=== PATIENT | male | born 1955 | race Caucasian/White ===

== ENCOUNTER 2017-05-29 11:21 | Observation (INO) | payer OTHER ==
--- NOTE | 2017-05-29 12:35 | RAD REPORT ---
EXAM DESCRIPTION: Ashley Single View05/29/2017 12:19 pm CLINICAL HISTORY: Chest pain COMPARISON: March 2016 FINDINGS: The lungs appear clear of acute infiltrate. The heart is normal size IMPRESSION: No acute abnormalities displayed
[2017-05-29 13:41] LABS: Absolute Lymphocytes (CBC) 1.7 K/uL (0.7-4.9); Absolute Monocytes 0.6 K/uL (0.1-1.3); Absolute Neutrophil 3.7 K/uL (1.8-8.0); Basophils % 1.3 % (0-1.3); Eosinophils % 2.7 % (0-4.4); Hematocrit 50.2 % (39.6-49.0); Lymphocytes % 26.8 % (15.3-44.8); MCH 28.6 pg (27.0-35.0); MPV 10.3 fL (7.6-11.3); Monocytes % 9.6 % (3.3-12.3); RBC Red Blood Cell Count 5.78 M/uL (4.33-5.43)
[2017-05-29 14:06] LABS: Albumin 4.3 g/dL (3.2-5.5); Bilirubin Direct 0.1 mg/dL (0-0.2); Bilirubin Total 0.7 mg/dL (0.3-1.2); Protein, Total 6.9 g/dL (6.0-8.3)
[2017-05-29 14:13] LABS: Protime INR 1.1
--- NOTE | 2017-05-29 14:25 | ER ---
Nurse's Notes [facility] Name: Joshua Watts Jr Age: 62 yrs Sex: Male : 1955 Arrival Date: 05/29/2017 Time: 11:24 Bed 17 Private MD: Miguel Gorman B Diagnosis: Chest pain, unspecified Presentation: 05/29 11:25 Presenting complaint: Patient states: Sternal chest pain that started while patient was aj exercising. Reports pain subsided shortly after it began and then returned last night. Took Aspirin 325 mg this AM. Transition of care: patient was not received from another setting of care. Onset of symptoms was May 28, 2017. Initial Sepsis Screen: Does the patient meet any 2 criteria? No. Patient's initial sepsis screen is negative. Does the patient have a suspected source of infection? No. Patient's initial sepsis screen is negative. Care prior to arrival: None. 11:25 Method Of Arrival: Ambulatory 11:25 Acuity: SEAN 3 aj Triage Assessment: 11:28 General: Appears in no apparent distress. comfortable, Behavior is calm, cooperative, aj appropriate for age. Pain: Complains of pain in chest Pain currently is 2 out of 10 on a pain scale. Neuro: Level of Consciousness is awake, alert, obeys commands, Oriented to person, place, time, situation, Appropriate for age. Cardiovascular: Reports chest pain, Capillary refill < 3 seconds in bilateral fingers Patient's skin is warm and dry. Respiratory: Airway is patent Respiratory effort is even, unlabored, Respiratory pattern is regular, symmetrical. Derm: Skin is intact, is healthy with good turgor, Skin is pink, warm \T\ dry. normal. Historical: - Allergies: 11:28 Darvon; aj 11:28 Darvocet-N 100; aj - Home Meds: 11:28 embrel [Active]; Benicar HCT oral oral [Active]; aj - PMHx: 11:28 Hypertension; Psoriatic arthritis; aj - PSHx: 11:28 Appendectomy; aj - Immunization history:: Adult Immunizations up to date. - Social history:: Smoking status: Patient/guardian denies using tobacco. Screenin:31 Abuse screen: Denies threats or abuse. Nutritional screening: No deficits noted. ae1 Tuberculosis screening: No symptoms or risk factors identified. Fall Risk None identified. Assessment: 11:15 General: Appears in no apparent distress. comfortable, Behavior is calm, cooperative. ae1 Pain: Denies pain. Neuro: Level of Consciousness is awake, alert, obeys commands, Oriented to person, place, time, situation. Cardiovascular: Heart tones S1 S2 present Patient's skin is warm and dry. Respiratory: Airway is patent Respiratory effort is even, unlabored, relaxed, Respiratory pattern is regular, symmetrical. GI: No signs and/or symptoms were reported involving the gastrointestinal system. Patient currently denies nausea. : No signs and/or symptoms were reported regarding the genitourinary system. Urine is clear. EENT: No signs and/or symptoms were reported regarding the EENT system. Derm: Skin is normal. Musculoskeletal: No signs and/or symptoms reported regarding the musculoskeletal system. 15:13 Reassessment: Per Tomás Villaseñor ok to order a heart healthy diet tray for patient. Dietary ae1 notified via telephone that order will be coming through [facility]. 15:20 Reassessment: at bedside discussing plan of care. ae1 15:31 Pain: Pain does not radiate. Pain began suddenly, 4 hours ago. ae1 15:32 Reassessment: Report called to Katie receiving nurse. Dietary notified that patient ae1 will be transferred to floor bed and tray should be sent to 421. Registration notified that report has been called. Vital Signs: 11:28 BP 120 / 68; Pulse 74; Resp 17; Temp 97.4; Pulse Ox 96% on R/A; Weight 154.22 kg; aj Height 6 ft. 2 in. (187.96 cm); Pain 2/10; 13:29 BP 118 / 63; Pulse 61; Resp 18; Pulse Ox 96% on R/A; ae1 15:20 BP 146 / 74; Pulse 63; Resp 18; Pulse Ox 95% on R/A; ae1 11:28 Body Mass Index 43.65 (154.22 kg, 187.96 cm) aj ED Course: 11:24 Patient arrived in ED. rg4 11:24 Miguel Groman MD is Private Physician. rg4 11:27 Triage completed. aj 11:28 Arm band placed on left wrist. Patient placed in an exam room. aj 11:30 Rogelio Orozco PA is PHCP. jr8 11:30 Dino Bills MD is Attending Physician. jr8 11:40 EKG done, by neurodiagnostic technologist. reviewed by Rogelio ROSARIO. at1 12:17 X-ray completed. Portable x-ray completed in exam room. Patient tolerated procedure ml well. 12:19 XRAY Chest (1 view) In Process Unspecified. EDMS 12:55 Matt Mendoza, RN is Primary Nurse. ae1 13:28 Inserted saline lock: 20 gauge in right antecubital area, using aseptic technique. ae1 ,using aseptic technique. blood sent to lab for recollection. Blood collected. Patient maintains SpO2 saturation greater than 95% on room air. 14:25 Dino England MD is Hospitalizing Provider. jr8 15:21 Placed in gown. Bed in low position. Call light in reach. Side rails up X2. Adult w/ ae1 patient. night monitor on. Pulse ox on. NIBP on. 16:06 No provider procedures requiring assistance completed. Patient admitted, IV remains in ae1 place. Administered Medications: No medications were administered Outcome: 14:25 Decision to Hospitalize by Provider. jr8 16:06 Admitted to Tele accompanied by tech, via wheelchair, room 421, with chart, Report ae1 called to SHASHI Wilson 16:06 Condition: stable 16:07 Patient left the ED. ae1 Signatures: Dispatcher [employer] EDMarah Dolan, RN RN Lynda Diego Josh, PA PA jr8 Marah fraser, canvas cutter machine EKG Tat1 Matt Mendoza, RN RN ae1 Verona Maldonado rg4 Corrections: (The following items were deleted from the chart) 15:34 15:32 Reassessment: Report called to Katie, receiving ae1 ae1 15:35 15:32 Reassessment: Report called to Katie receiving nurse. Dietary notified that ae1 patient will be transferred to floor bed and tray should be sent to 421. ae1
--- NOTE | 2017-05-29 14:26 | EDPHYS ---
Physician Documentation [facility] Name: Joshua Watts Jr Age: 62 yrs Sex: Male : 1955 Arrival Date: 05/29/2017 Time: 11:24 Bed 17 Private MD: Miguel Gorman B ED Physician Dino Bills HPI: 05/29 12:23 This 62 yrs old Male presents to ER via Ambulatory with complaints of Chest jr8 Pain. 12:23 The patient or guardian reports chest pain that is located primarily in the substernal jr8 area. Onset: acutely, yesterday. The pain does not radiate. Associated signs and symptoms: Pertinent positives: shortness of breath. The chest pain is described as a pressure, squeezing. Duration: The patient or guardian reports multiple episodes. Modifying factors: The symptoms are alleviated by ASA, rest, the symptoms are aggravated by exertion. Severity of pain: At its worst the pain was moderate in the emergency department the pain has resolved. The patient has not experienced similar symptoms in the past. The patient has not recently seen a physician. Patient stated that last week while working in yard had [place]. Stated that he was on exercise machine yesterday and about 19 min into workout started to have chest pressure substernally. Stopped and took aspirin and rested. Took about 30 min to resolve. Later in the night while at rest started to have that same pain. Came to ED today . Historical: - Allergies: 11:28 Darvon; aj 11:28 Darvocet-N 100; aj - Home Meds: 11:28 embrel [Active]; Benicar HCT oral oral [Active]; aj - PMHx: 11:28 Hypertension; Psoriatic arthritis; aj - PSHx: 11:28 Appendectomy; aj - Immunization history:: Adult Immunizations up to date. - Social history:: Smoking status: Patient/guardian denies using tobacco. ROS: 12:23 Eyes: Negative for injury, pain, redness, and discharge, ENT: Negative for injury, jr8 pain, and discharge, Neck: Negative for injury, pain, and swelling, Respiratory: Negative for shortness of breath, cough, wheezing, and pleuritic chest pain, Abdomen/GI: Negative for abdominal pain, nausea, vomiting, diarrhea, and constipation, Back: Negative for injury and pain, MS/Extremity: Negative for injury and deformity, Skin: Negative for injury, rash, and discoloration, Neuro: Negative for headache, weakness, numbness, tingling, and seizure. 12:23 Cardiovascular: Positive for chest pain, Negative for edema, orthopnea, palpitations, paroxysmal nocturnal dyspnea. Exam: 12:23 Eyes: Pupils equal round and reactive to light, extra-ocular motions intact. Lids and jr8 lashes normal. Conjunctiva and sclera are non-icteric and not injected. Cornea within normal limits. Periorbital areas with no swelling, redness, or edema. ENT: Nares patent. No nasal discharge, no septal abnormalities noted. Tympanic membranes are normal and external auditory canals are clear. Oropharynx with no redness, swelling, or masses, exudates, or evidence of obstruction, uvula midline. Mucous membranes moist. Neck: Trachea midline, no thyromegaly or masses palpated, and no cervical lymphadenopathy. Supple, full range of motion without nuchal rigidity, or vertebral point tenderness. No Meningismus. Chest/axilla: Normal chest wall appearance and motion. Nontender with no deformity. No lesions are appreciated. Cardiovascular: Regular rate and rhythm with a normal S1 and S2. No gallops, murmurs, or rubs. Normal PMI, no JVD. No pulse deficits. Respiratory: Lungs have equal breath sounds bilaterally, clear to auscultation and percussion. No rales, rhonchi or wheezes noted. No increased work of breathing, no retractions or nasal flaring. Abdomen/GI: Soft, non-tender, with normal bowel sounds. No distension or tympany. No guarding or rebound. No evidence of tenderness throughout. Back: No spinal tenderness. No costovertebral tenderness. Full range of motion. Skin: Warm, dry with normal turgor. Normal color with no rashes, no lesions, and no evidence of cellulitis. MS/ Extremity: Pulses equal, no cyanosis. Neurovascular intact. Full, normal range of motion. Neuro: Awake and alert, GCS 15, oriented to person, place, time, and situation. Cranial nerves II-XII grossly intact. Motor strength 5/5 in all extremities. Sensory grossly intact. Cerebellar exam normal. Normal gait. Vital Signs: 11:28 BP 120 / 68; Pulse 74; Resp 17; Temp 97.4; Pulse Ox 96% on R/A; Weight 154.22 kg; aj Height 6 ft. 2 in. (187.96 cm); Pain 2/10; 13:29 BP 118 / 63; Pulse 61; Resp 18; Pulse Ox 96% on R/A; ae1 15:20 BP 146 / 74; Pulse 63; Resp 18; Pulse Ox 95% on R/A; ae1 11:28 Body Mass Index 43.65 (154.22 kg, 187.96 cm) MDM: 11:30 Patient medically screened. 12:27 HEART Score: History: Moderately Suspicious (1), ECG: Normal (0), Age: > 45 and < 65 jr8 years (1), Risk Factors: > or = 3 Risk factors for atherosclerotic disease (2), [Hypercholesterolemia] [Hypertension] [+ Family HX] [Obesity] Troponin: < or = 1 x Normal Limit (0). The patient was not given aspirin in the Emergency Department. Patient reports taking aspirin within the past 24 hours. Data reviewed: vital signs, nurses notes, lab test result(s), EKG, radiologic studies, plain films. Data interpreted: Pulse oximetry: on room air is 96 %. Interpretation: normal. 14:24 Physician consultation: Dino England MD was called at 14:24, was contacted at 14:24, regarding admission, to the telemetry unit. consult, patient's condition, and will see patient. 05/29 11:48 Order name: Basic Metabolic Panel; Complete Time: 14:07 [facility] 05/29 11:48 Order name: BNP; Complete Time: 13:36 [facility] 05/29 11:48 Order name: CBC with Diff; Complete Time: 13:53 05/29 11:48 Order name: LFT's; Complete Time: 14:07 [facility] 05/29 11:48 Order name: Magnesium; Complete Time: 14:07 [facility] 05/29 11:48 Order name: PT-INR; Complete Time: 14:15 [facility] 05/29 11:30 Order name: EKG; Complete Time: 11:31 05/29 11:30 Order name: EKG - Nurse/Tech; Complete Time: 14:08 05/29 11:48 Order name: Ptt, Activated; Complete Time: 14:15 jr05/29 11:48 Order name: Troponin (emerg Dept Use Only); Complete Time: 14:07 05/29 11:48 Order name: XRAY Chest (1 view); Complete Time: 12:42 05/29 11:48 Order name: Cardiac monitoring; Complete Time: 13:34 05/29 14:01 Order name: Urine Dipstick--Ancillary (enter results); Complete Time: 14:40 mw2 05/29 15:16 Order name: Diet Heart Healthy; Complete Time: 15:17 ae1 05/29 11:48 Order name: IV Saline Lock; Complete Time: 13:34 05/29 11:48 Order name: Labs collected and sent; Complete Time: 13:34 [facility] 05/29 11:48 Order name: O2 Per Protocol; Complete Time: 13:34 05/29 11:48 Order name: O2 Sat Monitoring; Complete Time: 13:34 [facility] 05/29 11:48 Order name: Urine Dipstick-Ancillary (obtain specimen); Complete Time: 14:06 05/29 12:51 Order name: Labs - recollect needed; Complete Time: 13:34 mw2 Administered Medications: No medications were administered Disposition: 19:12 Co-signature as Attending Physician, Dino Bills MD I agree with the assessment and [facility] plan of care. Disposition: 05/29/17 14:25 Hospitalization ordered by Dino England for Observation. Preliminary diagnosis is Chest pain, unspecified. - Bed requested for Telemetry/MedSurg (observation). - Status is Observation. ae1 - Condition is Stable. - Problem is new. - Symptoms have improved. UTI on Admission? No Signatures: Dispatcher [employer] Marah Cartagena, RN Dino Young MD MD cha Roszak, Josh, PA PA jr8 Matt Mendoza RN RN ae1 Luca Perez mw2
[2017-05-29 14:27] LABS: Urine Blood NEGATIVE (NEG); Urine Glucose NEGATIVE (NEG); Urine Protein NEGATIVE (NEG); Urine pH 6.5 (5.0-7.0)
[2017-05-29] MEDS ORDERED: ACETAMINOPHEN 500 MG TAB PO PRN (16:05)
[2017-05-29] MEDS ORDERED: NITROGLYCERIN 0.4 MG/TAB SL PRN (16:05)
[2017-05-29] MEDS ORDERED: Morphine 2 MG/2 ML SYR IV PRN (16:05)
[2017-05-29] MEDS ORDERED: ALPRAZOLAM 0.25 MG TABLET PO PRN (16:05)
[2017-05-29 16:36] VITALS: BMI 43.6
--- NOTE | 2017-05-29 17:02 | EKG ---
Test Date: 2017-05-29 Test Time: 11:36:56 Bow String Maker: TOMMY MEASUREMENT RESULTS: Intervals: Rate: 63 NC: 150 QRSD: 102 QT: 402 QTc: 411 [place]: P: 12 NC: 150 QRS: -33 T: 23 INTERPRETIVE STATEMENTS: Normal sinus rhythm Left axis deviation Abnormal ECG Compared to ECG 03/28/2016 14:48:09 No significant changes Electronically Signed On 05-29-17 17:01:36 CDT by Arcenio Storm
[2017-05-29] MEDS: ENOXAPARIN 40 MG/0.4 ML SQ SCH (17:09)
[2017-05-29] MEDS ORDERED: ATORVASTATIN 40 MG TAB PO SCH (21:00)
[2017-05-29] MEDS: METOPROLOL TAR 25 MG TAB PO SCH (21:29)
--- NOTE | 2017-05-30 02:21 | HP ---
Date of Admission: 05/29/2017 Consultants: Dr. Mcnally with Cardiology. Primary Care Physician: Dr. Gorman. Chief Complaint: Chest pain. History Of Present Illness: The patient is a 62-year-old male with a past medical history of hyperte nsion, hyperlipidemia, gastroesophageal reflux disease, obstructive sleep apnea, and psoriatic arthri tis, who was in his usual state of health until the day prior to admission when the patient began an exercise regimen. The patient was biking and within 20 minutes had chest tightness and pain, which w as pressure type, radiating towards the back. The patient stopped exercising and took some aspirin a nd water and his symptoms dissipated in about 45 minutes. The patient had recurrence of this pain at night and had some worsening this morning. No associated nausea, vomiting, diaphoresis, or palpitat ions. The patient denies any cough, sputum production, fevers, or chills. The patient is a former E NT and suspected heart disease, therefore came into the ER for further evaluation. Upon arrival, his vital signs were stable. He was afebrile. His workup revealed negative troponin level. Chest x-ra y was normal and EKG did not show any acute changes. The patient was referred for admission. When s een in the ER, the patient was awake, alert, and oriented x3, in not any acute distress. He denied a ny chest pain at this time. Past Medical History: Hypertension, hyperlipidemia, gastroesophageal reflux disease, obstructive sle ep apnea, psoriatic arthritis, and obesity. Surgical History: Exploratory laparotomy for lysis of adhesions, ventral hernia repair, appendectomy , and pilonidal cyst. Allergies: TO DARVOCET, PROPOXYPHENE. Medications: As per medication reconciliation list reviewed. Social History: The patient denies any tobacco use. Does drink occasionally. No illicit drug use. The patient is , independent in his activities of daily living. Family History: Father had bypass surgery in the early 40s and of heart attack. Mother is in [employer] at age 88. Review of Systems: An 11-point system reviewed, negative except as per HPI. Physical Examination: Vital Signs: Temperature 97.4, heart rate 74, blood pressure 120/68, respirations 17, and O2 96% on room air. General: Awake, alert, and oriented x3, not in acute distress. Morbidly obese male. HEENT: Normocephalic, atraumatic. PERRLA. EOMI. Moist mucous membranes. Oropharynx is clear. No rmal dentition. Conjunctivae anicteric. Neck: Supple. No JVD. Trachea midline. CV: S1, S2. Regular rate and rhythm. Peripheral pulses present. No murmurs. Respiratory: Clear to auscultation bilaterally. No wheezing. No stridor. No use of accessory musc les. Gastrointestinal: Abdomen is soft, distended, and nontender. Bowel sounds are positive. No guardin g or rigidity. Extremities: No clubbing, cyanosis. No calf tenderness. The patient does have some trace edema on the lower extremities. Neuro: Cranial nerves 2 through 12 intact grossly. No focal neurological deficit. Speech is speech is normal. Strength is 5/5 in bilateral upper and lower extremities. Sensation intact to light inocencia ch. Skin: No rashes. Normal skin turgor. Psych: Mood is okay. Affect is full. Insight and judgment are good. Laboratory Data: Sodium 137, potassium 4, chloride 104, CO2 29, BUN 13, creatinine 1.09, glucose 100 , calcium 9.5, and magnesium 2. Troponin less than 0.03. INR 1.10. WBC 6.3, H and H 16.5 and 50.2, and platelets 165. UA negative. Chest x-ray shows no acute abnormalities, personally reviewed. Assessment: A 62-year-old male with; 1.Chest pain, rule out acute coronary syndrome. We will start him on chest pain guidelines. The pa woody is intolerant to statins. He has tried those before, develops myopathy. We will obtain serial cardiac enzymes and EKG. Dr. Mcnally with Cardiology has been consulted. The patient did have a co ronary angiogram in 2004 at [facility] and was told that he had normal coronary arteries. Nitro and morphine p.r.n. 2.Morbid obesity. 3.Essential hypertension. We will resume home medications. 4.Hyperlipidemia. We will check lipid panel. The patient is intolerant to statins. 5.Obstructive sleep apnea. The patient is instructed to bring in his CPAP with his old settings. 6.Psoriatic arthritis. We will hold Enbrel for now. 7.Gastroesophageal reflux disease without esophagitis. We will continue PPI. 8.Gastrointestinal and deep venous thrombosis prophylaxis with PPI and Lovenox. Plan: Admit the patient to med-surg, place as observation with remote cardiac telemetry. /RIO Voice ID: [id number]
[2017-05-30 05:28] LABS: Potassium 3.9 mEq/L (3.6-5.0)
[2017-05-30 05:44] LABS: Absolute Lymphocytes (CBC) 2.1 K/uL (0.7-4.9); Absolute Monocytes 0.8 K/uL (0.1-1.3); Absolute Neutrophil 4.1 K/uL (1.8-8.0); Basophils % 1.2 % (0-1.3); Eosinophils % 3.9 % (0-4.4); Lymphocytes % 28.6 % (15.3-44.8); MCH 28.6 pg (27.0-35.0); Monocytes % 11.2 % (3.3-12.3); RBC Red Blood Cell Count 5.75 M/uL (4.33-5.43)
[2017-05-30] MEDS ORDERED: LISINOPRIL 10 MG TAB PO SCH (09:00)
[2017-05-30] MEDS: ENOXAPARIN 40 MG/0.4 ML SQ SCH (09:00)
[2017-05-30] MEDS ORDERED: OLMESARTAN PO SCH (09:00)
[2017-05-30] MEDS: VALSARTAN 160 MG TAB PO SCH (09:00)
[2017-05-30] MEDS: METOPROLOL TAR 25 MG TAB PO SCH ×2 (09:00→22:34)
[2017-05-30] MEDS: hydroCHLOROthiazide 12.5 MG CAP PO SCH (09:00)
[2017-05-30] MEDS ORDERED: HYDROCHLOROTHIAZIDE PO SCH (09:00)
[2017-05-30] MEDS ORDERED: [UNRECOGNIZED DRUG - OTHER] PO SCH (09:00)
[2017-05-30] MEDS ORDERED: LIDOCAINE 1% 20 ML MDV ONE (09:52)
[2017-05-30] MEDS ORDERED: ATROPINE SULF 1 MG/10 ML SYR IV ONE (09:52)
[2017-05-30] MEDS ORDERED: NITROGLYCERIN/D5W 25 MG/250 ML BTL IV ONE (09:52)
[2017-05-30] MEDS ORDERED: NICARDIPINE HCL 25 MG/10 ML IV ONE (09:52)
[2017-05-30] MEDS ORDERED: NA CHLORIDE 0.9% 500 ML ONE (09:52)
[2017-05-30] MEDS ORDERED: HEPARIN 5000 UNIT/ML 1 ML VIAL ONE (09:52)
[2017-05-30] MEDS ORDERED: NA CHLORIDE 0.9% 0 ML ONE (09:53)
--- NOTE | 2017-05-30 11:12 | TREADMILL ---
70% H.R.: 112 85% H.R.: 136 90% H.R.: 144 100% H.R.: 160 DX: CHEST PAIN Date of Study: 05/30/2017 Ht: 6' 2 " Wt: 340 lb 0 oz Consulting Physician: CORTNEY MEDICATIONS: PROTONIX, TYLENOL, ASPIRIN, DIOVAN, HCT3, LOPRESOR, LOVENOX, MORPHINE, NTG, XANAX HISTORY: 62 YEAR OLD MALE WITH COMPLAINTS OF CHEST PAIN. PHYSICIAL EXAMINATION: RESTING B.P.: 115/78 RESTING H.R.: 70 RESTING EKG: LEFT AXIS DEVIATION. PROTOCOL: JAYLON ROUTINE EXERCISE TIME: 6:21 MAXIMUM HEART RATE: 126 % OF PREDICTED B.P. AT PEAK STRESS: 133/66 H.R. AT 1 MINUTE POST EXERCISE: 96 IMPRESSION: ROUTINE JAYLON STOPPED DUE TO FATIUGE. TARGET HEART RATE WAS NOT REACHED. NON DIAGNOSTIC, SUBMAXIMAL STRESS TEST.
[2017-05-30] MEDS ORDERED: MIDAZOLAM HCL 2 MG/2 ML INJ ONE ×2 (11:33→11:54)
[2017-05-30] MEDS ORDERED: FENTANYL CITR 100 MCG/2 ML ONE (11:33)
[2017-05-30] MEDS ORDERED: HEPA 1000U/500MLS 2,000 UNIT/1,000 ML BAG IV ONE (11:42)
--- NOTE | 2017-05-30 13:30 | CON ---
History Of Present Illness: Mr. Watts had chest pain. He had 1 episode while he was doing an ellip tical. Sat down, it went away. Another episode occurred while he was at rest. It lasted for severa l hours, went away on its own. Since he has been here in the hospital, EKGs and enzymes are normal. He has never had myocardial infarction or stroke. Does not use tobacco. He has dyslipidemia. Does not have diabetes and he has hypertension. The hypertension is well treated. Dyslipidemia is untre ated. We do not really have any numbers to go by that are written down in front of us, but we have h is report that he has mildly elevated total cholesterol, moderately elevated LDL, and low HDL cholest andre. He has been on at least 3 different statins and could not take any 1 of them. He is morbidly obese. He had a cardiac cath in 2004 that was normal when he had similar chest pain. Physical Examination: Vital Signs: Height 6 feet 2, 340 pounds, body mass index 43.7. HEENT: Normal. Lungs: Clear. NECK: Carotids, no bruit. HEART: Within normal limits. Extremities: No cyanosis, clubbing, or edema. Distal pulses palpable. His EKG does not show infarction, injury, or ischemia. There is a mild leftward axis. His EKG is un changed, compared to March 2016. I would recommend, we do a stress test and hope that the rio mcgowang factor whether he can be treated as an outpatient. They needs to have his lipids treated with a medicine that won't cause symptoms. It is likely that Scarlet would work and/or is Zetia or medicine s such as Praluent or Repatha. If his stress test shows any signs of ischemia or if he gets uncomfor table in the chest with walking again, I will recommend we do a cardiac cath. Thank you very much for your kind referral of Mr. Watts. I will follow him with you. SHAWN/RIO Voice ID: [id number] Report ID: [id number]
[2017-05-30] MEDS: ASPIRIN EC 81 MG TAB PO SCH (14:33)
[2017-05-30] MEDS: PANTOPRAZOLE 40MG TABLET PO SCH (14:33)
--- NOTE | 2017-05-30 15:30 | ECHO ---
HEIGHT: 6 ft 2 in WEIGHT: 340 lb 0 oz DATE OF STUDY: 05/30/[address]: Dino England MD 2-DIMENSIONAL: YES M.MODE: YES DOPPLER: YES COLOR FLOW: YES TDS: YES PORTABLE: NO DEFINITY: NO BUBBLE STUDY: NO DIAGNOSIS: CHEST PAIN CARDIAC HISTORY: CATHERIZATION: YES SURGERY: NO PROSTHETIC VALVE: NO PACEMAKER: NO MEASUREMENTS (cm) DIASTOLIC (NORMALS) SYSTOLIC (NORMALS) IVSd 1.3 (0.6-1.2) LA Diam 4.5 (1.9-4.0) LVEF 68% LVIDd 5.1 (3.5-5.7) LVIDs 3.2 (2.0-3.5) %FS 38% LVPWd 1.2 (0.6-1.2) Ao Diam 3.5 (2.0-3.7) 2 DIMENSIONAL ASSESSMENT: RIGHT ATRIUM: NORMAL LEFT ATRIUM: DILATED RIGHT VENTRICLE: NORMAL LEFT VENTRICLE: LEFT VENTRICULAR HYPERTROPHY TRICUSPID VALVE: NORMAL MITRAL VALVE: NORMAL PULMONIC VALVE: NORMAL AORTIC VALVE: NORMAL PERICARDIAL EFFUSION: NONE AORTIC ROOT: NORMAL LEFT VENTRICULAR WALL MOTION: NORMAL DOPPLER/COLOR FLOW: TRACE AORTIC REGURGITATION. COMMENTS: NORMAL LEFT VENTRICULAR EJECTION FRACTION. DILATED LEFT ATRIUM. LEFT VENTRICULAR HYPERTROPHY. TECHNOLOGIST: Rosa MEYER
--- NOTE | 2017-05-30 22:12 | PN ---
Date of Progress Note: 05/30/2017 Subjective: The patient was seen and examined, chart reviewed and case discussed with RN and Dr. Hunter seth. The patient was unable to complete his stress test. He went for cardiac catheterization. The patient was found to have some 50% mild blockage, however, did not require any stent placement. Review of Systems: Negative except as above. Medications: Reviewed. Physical Examination: Vital Signs: Temperature 97.9, heart rate 57, blood pressure 100/47, respirations 17, and O2 saturat ion 93% on room air. General: Awake, alert, oriented x3, no acute distress. Morbidly obese male. BMI of 43.7. CV: S1, S2. No murmurs. Regular rate and rhythm. Peripheral pulses present. Respiratory: Clear to auscultation bilaterally. No wheezing. Gastrointestinal: Abdomen is soft, nontender, nondistended. Positive bowel sounds. No guarding or rigidity. Extremities: No clubbing, cyanosis, or edema. Neurologic: Nonfocal. Laboratory Data: Sodium 137, potassium 2.9, chloride 104, CO2 26, BUN 16, creatinine 1.03, glucose 1 05, and calcium 9.2. Triglycerides 155, cholesterol 219, LDL 152, and HDL 36. WBC is 7.4, H and H 1 6.4 and 50, and platelet count 181. Diagnostic Data: Echocardiogram shows ejection fraction 68%, dilated left atrium, left ventricular h ypertrophy. Assessment: A 62-year-old male with: 1.Chest pain. Acute coronary syndrome ruled out, status post cardiac catheterization with mild jeff nary artery disease. No stent placement required. The patient will be continued on maximum medical management. The patient is unable to tolerate statins. He will be started on Repatha. Continue bet a margarito and aspirin. Echocardiogram shows normal EF. 2.Hypertensive heart disease. Echo shows left ventricular hypertrophy. We will continue beta-block er. 3.Morbid obesity, BMI of 43. 4.Essential hypertension, stable. Blood pressure on the low side. 5.Hyperlipidemia. 6.Elevated cholesterol and LDL. 7.Continue with Repatha. 8.Obstructive sleep apnea. The patient will continue CPAP from home. 9.Psoriatic arthritis. Enbrel on hold for now. 10.Gastroesophageal reflux disease without esophagitis. Continue PPI. 11.Gastrointestinal and deep venous thrombosis prophylaxis, PPI and Lovenox. Plan: Likely discharge in morning once cleared by Cardiology. /RIO Voice ID: [id number] Report ID: [id number]
--- NOTE | 2017-05-31 00:57 | OP ---
Surgeon: Arcenio Storm MD Identification: [id number]. Procedure: Left heart catheterization, coronary left ventricular angiography. Findings: The patient has [id number] CAD. All of his large vessels are free of any significan t disease. There is a 50% stenosis in the very ostial portion of a small size ramus intermedius bran ch. All the large branches are free of any disease. His ejection fraction is normal. His pressures were normal. Procedure In Detail: The patient had chest pain. He was unable to do a stress test. There were no EKG changes, but it was submaximal. His enzymes were normal. He was brought to the cardiac solar lab technician in a fasting state, sedated with Versed and fentanyl, prepared and draped in usual sterile fashion, right radial approach, 1% lidocaine to anesthetize the skin over the artery. The artery was entered using a 21-gauge needle, 0.021 inch guidewire was used and then a sheath was placed, 6-[place] Terumo radial sheath. This was used through entire case. We flushed the sheath and then gave a radial cock tail consisting of nicardipine, heparin, and aspirin. We used a TIG catheter, guided to the ascendin g aorta using the Terumo Glidewire with a short radius J-tip. We were able to angiogram left ventric le, right coronary, left coronary with the same catheter. At the end of the procedure, the catheter was removed over a J-wire. Arteriotomy closed with a TR band. No complications from the procedure. Estimated Blood Loss: 30 cc. SHAWN/RIO Voice ID: [id number] Report ID: [id number]
[2017-05-31] MEDS: ASPIRIN EC 81 MG TAB PO SCH (08:42)
[2017-05-31] MEDS: METOPROLOL TAR 25 MG TAB PO SCH (08:43)
[2017-05-31] MEDS: hydroCHLOROthiazide 12.5 MG CAP PO SCH (08:45)
[2017-05-31] MEDS: VALSARTAN 160 MG TAB PO SCH (08:45)
[2017-05-31 08:46] VITALS: BP 100/55
[2017-05-31] MEDS: PANTOPRAZOLE 40MG TABLET PO SCH (08:50)
[2017-05-31 08:56] VITALS: TEMP 96.8
[2017-05-31] MEDS ORDERED: CLOPIDOGREL 75 MG TABLET PO SCH (09:00)
[2017-05-31 10:37] VITALS: O2SAT 94
--- NOTE | 2017-05-31 12:52 | PN ---
Mr. Watts is asymptomatic. He is now on aspirin, Plavix. He is intolerant of 3 statins, so we woul d not try a fourth one. We will keep him on olmesartan with hydrochlorothiazide. We will add metopr olol 50 b.i.d., and on Friday he will get his first dose of Repatha. We will have him come to the [facility] on Friday and get a dose of Repatha and we will work on getting a new prescription to continue o n that. He will work on a program of weight loss and we also will make a referral to cardiac rehab f or outpatient care. SHAWN/RIO Voice ID: [id number] Report ID: [id number]
--- NOTE | 2017-05-31 18:43 | DS ---
Date of Discharge: 05/31/2017 Consultants: Dr. Storm with Cardiology. Procedures: Exercise stress test, which was incomplete due to patient's inability to complete. 05/30/2017, cardiac catheterization, left ventricular angiography. The patient has jfeb-[id number]-[id number] coronary disease. Large vessel is free of significant disease. A 50% stenosis of the very ostial portion of small size ramus intermedius branch. No stent placed. Admitting Diagnoses: 1. Chest pain, rule out acute coronary syndrome. 2. Morbid obesity. BMI 43. 3. Essential hypertension. 4. Hyperlipidemia. 5. Obstructive sleep apnea, on CPAP. 6. Chronic arthritis. 7. Gastroesophageal reflux disease without esophagitis. Discharge Diagnoses: 1. Chest pain. Acute coronary syndrome ruled out. Status post cardiac catheterization. 2. Coronary artery disease, mild. No stent required. 3. Hypertensive heart disease. Continue beta-margarito. 4. Morbid obesity. BMI 43. 5. Essential hypertension. Blood pressure on the low side. 6. Dyslipidemia. The patient will be started on Repatha. Unable to tolerate statin. 7. Obstructive sleep apnea. Continue CPAP. 8. Chronic arthritis. The patient on Enbrel. 9. Gastroesophageal reflux disease without esophagitis. PPI. Hospital Course: The patient is a 62-year-old male who came in with chest pain. The patient was started on chest pain guidelines. ACS was ruled out. Dr. Storm with Cardiology was consulted. Next, stress test was obtained. However, patient was unable to complete his stress test due to fatigue. Cardiac catheterization was done which showed findings as mentioned above. The patient did not require any stent placement. The patient's echocardiogram showed EF of 68% left ventricular hypertrophy. His medications were adjusted. The patient is unable to tolerate statin medication and will be placed on Repatha. The patient will receive a shot on Friday at the termite control representative's office. The patient was chest pain free, was doing well, ambulating well. No further chest pain or shortness of breath. The patient was then cleared for discharge to go home on Plavix and metoprolol. Otherwise, will have Nitrostat p.r.n. Rest of the medication as per medication reconciliation list. Followup: Follow up with primary care physician 2-3 days. Follow up with Dr. Storm on Friday. Return to ER for worsening condition. Diet: Heart healthy. Activity: As tolerated. Physical Examination: General: Awake, alert, oriented, no acute distress. CV: S1, S2. No murmurs. Respiratory: Moving air well bilaterally. No wheezing. Abdomen: Soft, nontender, nondistended. Positive bowel sounds. Extremities: No clubbing, cyanosis, or edema. Neurologic: Nonfocal. SA/MODChaitanya Voice ID: [id number] Report ID: [id number] [facility]
== END 2017-05-31 11:12 | disposition home or self-care (01) ==
LOC: ER 11:21 → ERHOLD 14:41 → 4TH 15:35
PROVIDERS: ADMIT Family Medicine; ATTEND Family Medicine
PROC: 4A023N7 Measurement of Cardiac Sampling and Pressure, Left Heart, Percutaneous Approach (ICD-10-PCS; principal; 2017-05-30)
PROC: B201YZZ Plain Radiography of Multiple Coronary Arteries using Other Contrast (ICD-10-PCS; 2017-05-30)
PROC: B205YZZ Plain Radiography of Left Heart using Other Contrast (ICD-10-PCS; 2017-05-30)
DX: R07.9 Chest pain, unspecified (principal); I25.10 Atherosclerotic heart disease of native coronary artery without angina pectoris; I10 Essential (primary) hypertension; E78.5 Hyperlipidemia, unspecified; G47.33 Obstructive sleep apnea (adult) (pediatric); M19.90 Unspecified osteoarthritis, unspecified site; K21.9 Gastro-esophageal reflux disease without esophagitis; E66.01 Morbid (severe) obesity due to excess calories; Z68.41 Body mass index [BMI] 40.0-44.9, adult
CPT/HCPCS: 36415; 71045; 80048; 80061; 80076; 81003; 83735; 83880; 84484; 85025; 85610; 85730; 93005; 93017; 93306; 93458; 94760; 99285; C1893; G0378; J0583; J1644; J1650; J2250; J3010